=== PATIENT | female | born 1960 | race Caucasian/White ===

== ENCOUNTER → 2024-03-06 10:46 | Outpatient (BNVA) | payer MEDICARE, SELFPAY | PROVIDERS: Referring Provider Nurse Practitioner; Visit Provider Specialist | DX: G37.9 Demyelinating disease of central nervous system, unspecified (principal) | CPT/HCPCS: 99204; 99213 ==

== ENCOUNTER → 2024-07-17 12:56 | Outpatient (BNVA) | payer MEDICARE, SELFPAY | PROVIDERS: PCP Nurse Practitioner; Visit Provider Specialist | DX: G37.9 Demyelinating disease of central nervous system, unspecified (principal); G35 Multiple sclerosis | CPT/HCPCS: 99214 ==